=== PATIENT | female | born 1990 | race American Indian/Alaskan Native ===

== ENCOUNTER 2018-04-13 15:01 | Inpatient (IN) | payer OTHER ==
[2018-04-13] MEDS ORDERED: MINERAL OIL PO PRN (16:03)
[2018-04-13] MEDS ORDERED: BRETHINE SUB-Q PRN (16:03)
[2018-04-13] MEDS ORDERED: BRETHINE IVP PRN (16:03)
[2018-04-13] MEDS ORDERED: XYLOCAINE 2% INFILTRATI ONE (16:03)
[2018-04-13] MEDS ORDERED: ePHEDrine SULFATE IV PRN (16:03)
[2018-04-13] MEDS: LACTATED RINGERS 1,000 ML IV SCH (16:35)
[2018-04-13] MEDS ORDERED: PITOCin/NS 30 UNIT/500ML 30 UNITS/500 ML BAG IV SCH (17:00)
[2018-04-13] MEDS ORDERED: PITOCin/NS 20 UNIT/1000ML DRIP 20 UNITS/1,000 ML BAG IV SCH (17:00)
[2018-04-13] MEDS ORDERED: CYTOTEC VG PRN (17:01)
--- NOTE | 2018-04-13 17:33 | History and Physical Report ---
History of Present Illness Date of examination: 04/13/18 Date of admission: 04/13/18 15:01 Chief complaint: Induction of Labor History of present illness: Early entry to care, course complicated by nausea and vomiting in the 1st trimester, also treated for Chlamydia and Trichomonas. HSV 2 Positive as well. Co-managed with [facility] due to subclinicial hyperthyroidism and a son with Autism. 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 History: chlamydia, herpes, trichomonas Family/Genetic History: diabetes (MGF, Mother, Uncle) Social history: no significant social history, single - Obstetrical History Expected Date of Delivery: 04/12/18 Actual Gestation: 40 Week(s) 1 Day(s) : 6 Para: 4 Number of Living Children: 4 #1 Gender: Female year: 2,006 Birthweight: 3.997 kg Method of Delivery: Vaginal Gestational age at delivery: 41 Complications: none #2 Gender: Male year: 2,[birth year] Birthweight: 3.941 kg Method of Delivery: Vaginal Gestational age at delivery: 41 Complications: none #3 Infant Gender: Male year: 2,010 Birthweight: 3.912 kg Method of Delivery: Vaginal Gestational age at delivery: 41 Complications: none #4 Gender: Male year: 2,013 Birthweight: 3.799 kg Method of Delivery: Vaginal Gestational age at delivery: 41 Medications and Allergies Allergies Allergy/AdvReac Type Severity Reaction Status Date / Time No Known Allergies Allergy Unverified 04/13/18 15:51 Home Medications Medication Instructions Recorded Confirmed Last Taken Type Ferrous Sulfate [Iron] 1 tab PO BID 04/13/18 04/13/18 1 Day Ago History ~04/12/18 Valacyclovir HCl [Valtrex] 1 tab PO DAILY 04/13/18 04/13/18 1 Day Ago History ~04/12/18 Active Meds: Active Medications Ephedrine Sulfate (Ephedrine Sulfate) 10 mg IV Q2M PRN PRN Reason: Hypotension Lactated Ringer's (Lactated Ringers) 1,000 mls @ 125 mls/hr IV DIRECT SUNNY Last Admin: 04/13/18 16:35 Dose: 125 mls/hr Oxytocin/Sodium Chloride (Pitocin/Ns 20 Unit/1000ml Drip) 20 units in 1,000 mls @ 125 mls/hr IV DIRECT SUNNY Oxytocin/Sodium Chloride (Pitocin/Ns 30 Unit/500ml) 30 units in 500 mls @ 2 mls /hr IV TITR SUNNY; Protocol Oxytocin/Sodium Chloride (Pitocin/Ns 30 Unit/500ml) 30 units in 500 mls @ 1 mls /hr IV TITR SUNNY; Protocol Mineral Oil (Mineral Oil) 30 ml PO QHS PRN PRN Reason: Constipation Misoprostol (Cytotec) 25 mcg VG Q4H PRN PRN Reason: Labor Induction Terbutaline Sulfate (Brethine) 0.25 mg SUB-Q ONCE PRN PRN Reason: Hyperstimulation/Hypertonicity Terbutaline Sulfate (Brethine) 0.25 mg IVP ONCE PRN PRN Reason: Hyperstimulation/Hypertonicity Review of Systems All systems: negative - Vital Signs Vital signs: Vital Signs Temp Resp 99.0 F 18 04/13/18 15:45 04/13/18 15:45 Temp Pulse Resp BP Pulse Ox 99.0 F 95 H 18 103/71 04/13/18 15:45 04/13/18 17:18 04/13/18 15:45 04/13/18 17:18 - Physical Exam Breasts: Positive: normal Cardiovascular: Regular rate Lungs: Positive: Clear to auscultation, Normal air movement Abdomen: Positive: normal appearance, soft, normal bowel sounds Genitourinary (Female): Positive: normal external genitalia, normal perenium Vagina: Positive: normal moisture Uterus: Positive: enlarged Anus/Rectum: Positive: normal perianal skin - Obstetrical FHR: category 1 Uterine Contraction Monitor Mode: External Cervical Dilatation: 2.5 Cervical Effacement Percentage: 60 station: -3 Uterine Contraction Pattern: Irregular Uterine Tone Measurement Phase: Resting Uterine Contraction Intensity: Mild Results All other labs normal. Assessment and Plan A IUP @ 40 1/7 Weeks Category I Tracing Suspected LGA Polyhydramnios GBS Negative P: Admit to L&D per Routine Orders Cytotec Induction
[2018-04-13 17:51] LABS: Hematocrit 38.2 % (30.3-42.9); Hemoglobin 12.8 gm/dl (10.1-14.3); Mean Corpuscular HGB Conc 33 % (30-34); Mean Corpuscular Hemoglobin 34 pg (28-32); Mean Corpuscular Volume 103 fl (79-97); Platelet Count 207 K/mm3 (140-440); Red Blood Count 3.72 M/mm3 (3.65-5.03); Red Cell Distribution Width 13.7 % (13.2-15.2)
[2018-04-13] MEDS ORDERED: CERVIDIL VG ONE (17:52)
[2018-04-14] MEDS ORDERED: STADOL IV PRN (01:53)
[2018-04-14] MEDS ORDERED: SUBLIMAZE IV PRN (01:54)
[2018-04-14] MEDS: LACTATED RINGERS 1,000 ML IV SCH ×4 (02:03→17:52)
--- NOTE | 2018-04-14 10:17 | Progress Note ---
Assessment and Plan A: Term IUP 40w2d, IOL Category 1 tracing AROM 10:06 Copious amt clear fluid P: Routine labor orders Anticipate Subjective - Subjective Date of service: 04/14/18 Principal diagnosis: Term IUP, IOL Interval history: See H&P Patient reports: movement normal, contractions Objective - Vital Signs Vital Signs: Vital Signs - 12hr 04/13/18 04/13/18 04/13/18 22:17 22:21 22:24 Temperature Pulse Rate 95 H 93 H 97 H Respiratory Rate Blood Pressure 100/63 Blood Pressure [Right] O2 Sat by Pulse 94 94 94 Oximetry 04/13/18 04/13/18 04/13/18 22:26 22:31 22:35 Temperature Pulse Rate 94 H 93 H 97 H Respiratory Rate Blood Pressure Blood Pressure [Right] O2 Sat by Pulse 95 95 94 Oximetry 04/13/18 04/13/18 04/13/18 22:36 22:41 22:46 Temperature Pulse Rate 99 H 94 H 95 H Respiratory Rate Blood Pressure Blood Pressure [Right] O2 Sat by Pulse 95 95 95 Oximetry 04/13/18 04/13/18 04/13/18 22:51 22:56 23:01 Temperature Pulse Rate 96 H 99 H 99 H Respiratory Rate Blood Pressure Blood Pressure [Right] O2 Sat by Pulse 95 98 98 Oximetry 04/13/18 04/13/18 04/13/18 23:03 23:06 23:11 Temperature Pulse Rate 98 H 99 H 96 H Respiratory Rate Blood Pressure Blood Pressure [Right] O2 Sat by Pulse 94 96 97 Oximetry 04/13/18 04/13/18 04/13/18 23:13 23:16 23:17 Temperature Pulse Rate 100 H 100 H 92 H Respiratory Rate Blood Pressure 101/60 Blood Pressure [Right] O2 Sat by Pulse 94 95 Oximetry 04/13/18 04/13/18 04/13/18 23:21 23:26 23:31 Temperature Pulse Rate 92 H 86 93 H Respiratory Rate Blood Pressure Blood Pressure [Right] O2 Sat by Pulse 95 97 96 Oximetry 04/13/18 04/13/18 04/13/18 23:36 23:41 23:51 Temperature Pulse Rate 90 99 H 85 Respiratory Rate Blood Pressure Blood Pressure [Right] O2 Sat by Pulse 96 95 96 Oximetry 04/13/18 04/14/18 04/14/18 23:56 00:01 00:06 Temperature Pulse Rate 90 86 92 H Respiratory Rate Blood Pressure Blood Pressure [Right] O2 Sat by Pulse 96 96 97 Oximetry 04/14/18 04/14/18 04/14/18 00:09 00:11 00:15 Temperature Pulse Rate 87 84 82 Respiratory Rate Blood Pressure Blood Pressure [Right] O2 Sat by Pulse 94 94 94 Oximetry 04/14/18 04/14/18 04/14/18 00:16 00:17 00:21 Temperature Pulse Rate 84 82 88 Respiratory Rate Blood Pressure 109/60 Blood Pressure [Right] O2 Sat by Pulse 94 93 Oximetry 04/14/18 04/14/18 04/14/18 00:22 00:26 00:27 Temperature Pulse Rate 82 85 93 H Respiratory Rate Blood Pressure Blood Pressure [Right] O2 Sat by Pulse 94 93 94 Oximetry 04/14/18 04/14/18 04/14/18 00:31 00:35 00:36 Temperature Pulse Rate 88 98 H 84 Respiratory Rate Blood Pressure Blood Pressure [Right] O2 Sat by Pulse 92 92 94 Oximetry 04/14/18 04/14/18 04/14/18 00:40 00:41 00:46 Temperature Pulse Rate 95 H 93 H 97 H Respiratory Rate Blood Pressure Blood Pressure [Right] O2 Sat by Pulse 94 93 93 Oximetry 04/14/18 04/14/18 04/14/18 00:50 00:51 00:56 Temperature Pulse Rate 91 H 91 H 89 Respiratory Rate Blood Pressure Blood Pressure [Right] O2 Sat by Pulse 94 93 94 Oximetry 04/14/18 04/14/18 04/14/18 00:57 01:01 01:03 Temperature Pulse Rate 96 H 89 89 Respiratory Rate Blood Pressure Blood Pressure [Right] O2 Sat by Pulse 94 93 92 Oximetry 04/14/18 04/14/18 04/14/18 01:06 01:11 01:16 Temperature Pulse Rate 87 91 H 91 H Respiratory Rate Blood Pressure Blood Pressure [Right] O2 Sat by Pulse 94 94 92 Oximetry 04/14/18 04/14/18 04/14/18 01:18 01:21 01:24 Temperature Pulse Rate 92 H 93 H 89 Respiratory Rate Blood Pressure 104/54 Blood Pressure [Right] O2 Sat by Pulse 94 96 93 Oximetry 04/14/18 04/14/18 04/14/18 01:26 01:30 01:31 Temperature Pulse Rate 87 88 88 Respiratory Rate Blood Pressure Blood Pressure [Right] O2 Sat by Pulse 94 91 93 Oximetry 04/14/18 04/14/18 04/14/18 01:37 01:42 01:45 Temperature Pulse Rate 90 96 H 84 Respiratory Rate Blood Pressure Blood Pressure [Right] O2 Sat by Pulse 96 97 94 Oximetry 04/14/18 04/14/18 04/14/18 01:47 01:52 01:54 Temperature Pulse Rate 86 82 Respiratory Rate Blood Pressure Blood Pressure [Right] O2 Sat by Pulse 94 93 93 Oximetry 04/14/18 04/14/18 04/14/18 01:57 02:02 02:07 Temperature Pulse Rate 93 H 82 87 Respiratory Rate Blood Pressure Blood Pressure [Right] O2 Sat by Pulse 94 94 92 Oximetry 04/14/18 04/14/18 04/14/18 02:08 02:12 02:17 Temperature Pulse Rate 87 91 H 87 Respiratory 18 Rate Blood Pressure Blood Pressure [Right] O2 Sat by Pulse 94 94 94 Oximetry 04/14/18 04/14/18 04/14/18 02:18 02:22 02:23 Temperature Pulse Rate 95 H 89 89 Respiratory Rate Blood Pressure 112/6 Blood Pressure [Right] O2 Sat by Pulse 95 94 Oximetry 04/14/18 04/14/18 04/14/18 02:27 02:32 02:37 Temperature Pulse Rate 85 87 90 Respiratory Rate Blood Pressure Blood Pressure [Right] O2 Sat by Pulse 89 90 91 Oximetry 04/14/18 04/14/18 04/14/18 02:42 02:44 02:47 Temperature Pulse Rate 84 98 H 75 Respiratory 18 Rate Blood Pressure Blood Pressure [Right] O2 Sat by Pulse 91 94 90 Oximetry 04/14/18 04/14/18 04/14/18 02:52 02:57 03:02 Temperature Pulse Rate 84 83 84 Respiratory Rate Blood Pressure Blood Pressure [Right] O2 Sat by Pulse 90 90 91 Oximetry 04/14/18 04/14/18 04/14/18 03:07 03:12 03:17 Temperature Pulse Rate 82 84 78 Respiratory Rate Blood Pressure 104/58 Blood Pressure [Right] O2 Sat by Pulse 90 89 92 Oximetry 04/14/18 04/14/18 04/14/18 03:22 03:27 03:32 Temperature Pulse Rate 83 84 83 Respiratory Rate Blood Pressure Blood Pressure [Right] O2 Sat by Pulse 90 90 90 Oximetry 04/14/18 04/14/18 04/14/18 03:37 03:42 03:47 Temperature Pulse Rate 83 85 85 Respiratory Rate Blood Pressure Blood Pressure [Right] O2 Sat by Pulse 90 91 90 Oximetry 04/14/18 04/14/18 04/14/18 03:48 03:52 03:57 Temperature Pulse Rate 94 H 76 79 Respiratory Rate Blood Pressure Blood Pressure [Right] O2 Sat by Pulse 94 91 91 Oximetry 04/14/18 04/14/18 04/14/18 04:02 04:07 04:12 Temperature Pulse Rate 77 77 80 Respiratory Rate Blood Pressure Blood Pressure [Right] O2 Sat by Pulse 92 92 91 Oximetry 04/14/18 04/14/18 04/14/18 04:17 04:18 04:22 Temperature Pulse Rate 81 78 83 Respiratory Rate Blood Pressure 88/50 Blood Pressure [Right] O2 Sat by Pulse 91 91 Oximetry 04/14/18 04/14/18 04/14/18 04:27 04:32 04:37 Temperature Pulse Rate 81 83 85 Respiratory Rate Blood Pressure Blood Pressure [Right] O2 Sat by Pulse 91 90 91 Oximetry 04/14/18 04/14/18 04/14/18 04:42 04:47 04:55 Temperature Pulse Rate 81 94 H Respiratory Rate Blood Pressure Blood Pressure [Right] O2 Sat by Pulse 91 94 94 Oximetry 04/14/18 04/14/18 04/14/18 04:56 05:01 05:02 Temperature Pulse Rate 87 79 85 Respiratory Rate Blood Pressure Blood Pressure [Right] O2 Sat by Pulse 94 97 94 Oximetry 04/14/18 04/14/18 04/14/18 05:06 05:11 05:16 Temperature Pulse Rate 85 86 82 Respiratory Rate Blood Pressure Blood Pressure [Right] O2 Sat by Pulse 93 94 93 Oximetry 04/14/18 04/14/18 04/14/18 05:17 05:21 05:26 Temperature Pulse Rate 82 84 84 Respiratory Rate Blood Pressure 89/54 Blood Pressure [Right] O2 Sat by Pulse 92 91 Oximetry 04/14/18 04/14/18 04/14/18 05:31 05:36 05:41 Temperature Pulse Rate 85 85 84 Respiratory Rate Blood Pressure Blood Pressure [Right] O2 Sat by Pulse 91 91 92 Oximetry 04/14/18 04/14/18 04/14/18 05:46 05:51 05:56 Temperature Pulse Rate 85 90 85 Respiratory Rate Blood Pressure Blood Pressure [Right] O2 Sat by Pulse 91 91 92 Oximetry 04/14/18 04/14/18 04/14/18 06:00 06:01 06:06 Temperature Pulse Rate 95 H 94 H 82 Respiratory Rate Blood Pressure Blood Pressure [Right] O2 Sat by Pulse 93 93 92 Oximetry 04/14/18 04/14/18 04/14/18 06:11 06:16 06:17 Temperature Pulse Rate 84 82 81 Respiratory Rate Blood Pressure 88/54 Blood Pressure [Right] O2 Sat by Pulse 91 92 Oximetry 04/14/18 04/14/18 04/14/18 06:21 06:24 06:26 Temperature Pulse Rate 98 H 81 93 H Respiratory Rate Blood Pressure Blood Pressure [Right] O2 Sat by Pulse 93 94 94 Oximetry 04/14/18 04/14/18 04/14/18 06:30 06:31 06:36 Temperature Pulse Rate 87 89 100 H Respiratory Rate Blood Pressure Blood Pressure [Right] O2 Sat by Pulse 94 94 95 Oximetry 04/14/18 04/14/18 04/14/18 06:37 06:41 06:42 Temperature Pulse Rate 85 89 84 Respiratory Rate Blood Pressure Blood Pressure [Right] O2 Sat by Pulse 94 94 94 Oximetry 04/14/18 04/14/18 04/14/18 06:46 06:49 06:51 Temperature Pulse Rate 85 89 95 H Respiratory Rate Blood Pressure Blood Pressure [Right] O2 Sat by Pulse 93 94 94 Oximetry 04/14/18 04/14/18 04/14/18 06:55 06:56 07:01 Temperature Pulse Rate 89 94 H 85 Respiratory Rate Blood Pressure Blood Pressure [Right] O2 Sat by Pulse 94 95 93 Oximetry 04/14/18 04/14/18 04/14/18 07:02 07:06 07:09 Temperature Pulse Rate 82 81 84 Respiratory Rate Blood Pressure Blood Pressure [Right] O2 Sat by Pulse 94 94 94 Oximetry 04/14/18 04/14/18 04/14/18 07:11 07:15 07:16 Temperature Pulse Rate 82 86 82 Respiratory Rate Blood Pressure Blood Pressure [Right] O2 Sat by Pulse 94 94 94 Oximetry 04/14/18 04/14/18 04/14/18 07:19 07:20 07:21 Temperature Pulse Rate 90 80 82 Respiratory Rate Blood Pressure 111/57 Blood Pressure [Right] O2 Sat by Pulse 94 94 Oximetry 04/14/18 04/14/18 04/14/18 07:26 07:28 07:31 Temperature Pulse Rate 84 86 85 Respiratory Rate Blood Pressure Blood Pressure [Right] O2 Sat by Pulse 94 94 94 Oximetry 04/14/18 04/14/18 04/14/18 07:35 07:36 07:40 Temperature Pulse Rate 78 89 93 H Respiratory Rate Blood Pressure Blood Pressure [Right] O2 Sat by Pulse 94 94 94 Oximetry 04/14/18 04/14/18 04/14/18 07:41 07:45 07:46 Temperature Pulse Rate 85 88 88 Respiratory Rate Blood Pressure Blood Pressure [Right] O2 Sat by Pulse 96 94 94 Oximetry 04/14/18 04/14/18 04/14/18 07:51 07:55 07:56 Temperature Pulse Rate 85 91 H 88 Respiratory Rate Blood Pressure Blood Pressure [Right] O2 Sat by Pulse 95 94 93 Oximetry 04/14/18 04/14/18 04/14/18 07:58 08:01 08:03 Temperature 98.4 F Pulse Rate 93 H 101 H 83 Respiratory 16 Rate Blood Pressure Blood Pressure 119/71 [Right] O2 Sat by Pulse 95 94 93 Oximetry 04/14/18 04/14/18 04/14/18 08:05 08:06 08:09 Temperature Pulse Rate 90 89 89 Respiratory Rate Blood Pressure 119/71 Blood Pressure [Right] O2 Sat by Pulse 92 93 Oximetry 04/14/18 04/14/18 04/14/18 08:11 08:14 08:16 Temperature Pulse Rate 86 85 90 Respiratory Rate Blood Pressure Blood Pressure [Right] O2 Sat by Pulse 93 94 94 Oximetry 04/14/18 04/14/18 04/14/18 08:18 08:21 08:23 Temperature Pulse Rate 85 92 H 90 Respiratory Rate Blood Pressure 110/74 Blood Pressure [Right] O2 Sat by Pulse 93 94 Oximetry 04/14/18 04/14/18 04/14/18 08:26 08:29 08:31 Temperature Pulse Rate 88 102 H 96 H Respiratory Rate Blood Pressure Blood Pressure [Right] O2 Sat by Pulse 94 93 91 Oximetry 04/14/18 04/14/18 04/14/18 08:35 08:36 08:41 Temperature Pulse Rate 86 84 80 Respiratory Rate Blood Pressure Blood Pressure [Right] O2 Sat by Pulse 94 92 94 Oximetry 04/14/18 04/14/18 04/14/18 08:46 08:51 08:52 Temperature Pulse Rate 85 85 95 H Respiratory Rate Blood Pressure Blood Pressure [Right] O2 Sat by Pulse 93 94 94 Oximetry 04/14/18 04/14/18 04/14/18 08:56 09:01 09:06 Temperature Pulse Rate 93 H 93 H 97 H Respiratory Rate Blood Pressure Blood Pressure [Right] O2 Sat by Pulse 95 96 95 Oximetry 04/14/18 04/14/18 04/14/18 09:11 09:16 09:18 Temperature Pulse Rate 103 H 93 H 89 Respiratory Rate Blood Pressure 95/53 Blood Pressure [Right] O2 Sat by Pulse 93 94 Oximetry 04/14/18 04/14/18 04/14/18 09:21 09:26 09:28 Temperature Pulse Rate 84 86 84 Respiratory Rate Blood Pressure Blood Pressure [Right] O2 Sat by Pulse 93 93 94 Oximetry 04/14/18 04/14/18 04/14/18 09:31 09:33 09:36 Temperature Pulse Rate 78 85 88 Respiratory Rate Blood Pressure Blood Pressure [Right] O2 Sat by Pulse 94 94 94 Oximetry 04/14/18 04/14/18 04/14/18 09:39 09:41 09:45 Temperature Pulse Rate 83 82 86 Respiratory Rate Blood Pressure Blood Pressure [Right] O2 Sat by Pulse 93 95 94 Oximetry 04/14/18 04/14/18 09:46 09:51 Temperature Pulse Rate 91 H 76 Respiratory Rate Blood Pressure Blood Pressure [Right] O2 Sat by Pulse 94 94 Oximetry - Exam Breasts: normal Cardiovascular: Regular rate, Normal S1, Normal S2 Lungs: Clear to auscultation, Normal air movement Abdomen: Present: normal appearance, soft, normal bowel sounds, other (Gravid) Vulva: both: normal Uterus: Present: normal (Gravid) FHR: category 1 Uterine Contraction Monitor Mode: External Cervical Dilatation: 3 (AROM 10:06, copious amt clear fluid) Cervical Effacement Percentage: 70 station: -2 Uterine Contraction Pattern: Irregular Uterine Tone Measurement Phase: Resting Uterine Contraction Intensity: Mild Extremities: normal Deep Tendon Reflex Grade: Normal +2 - Labs Labs: Abnormal Labs 04/13/18 16:05 MCV 103 H MCH 34 H Laboratory Results - last 24 hr 04/13/18 04/13/18 16:05 16:05 WBC 8.2 RBC 3.72 Hgb 12.8 Hct 38.2 MCV 103 H MCH 34 H MCHC 33 RDW 13.7 Plt Count 207 Blood Type O POSITIVE Antibody Screen Negative
[2018-04-14] MEDS: PITOCin/NS 30 UNIT/500ML 30 UNITS/500 ML BAG IV SCH ×3 (11:22→16:29)
[2018-04-14] MEDS ORDERED: BICITRA PO ONE (17:10)
[2018-04-14] MEDS ORDERED: PEPCID IV ONE (17:10)
[2018-04-14] MEDS ORDERED: REGLAN IV ONE (17:10)
--- NOTE | 2018-04-14 17:20 | Progress Note ---
Assessment and Plan A: Term IUP 40w2d Polyhydramnios Category 1 tracing Meconium stained fluid Aniya Breech presentation (confirmed via US at bedside) Pitocin 12mu P: Dr. Nails notified via phone of Breech presentation @16:59(Will proceed to Primary section) Pitocin off Routine pre-op orders Subjective - Subjective Date of service: 04/14/18 Principal diagnosis: Term IUP, IOL Interval history: See H&P Patient reports: loss of fluid, movement normal, contractions Objective - Vital Signs Vital Signs: Vital Signs - 12hr 04/14/18 04/14/18 04/14/18 05:17 05:21 05:26 Temperature Pulse Rate 82 84 84 Respiratory Rate Blood Pressure 89/54 Blood Pressure [Right] O2 Sat by Pulse 92 91 Oximetry 04/14/18 04/14/18 04/14/18 05:31 05:36 05:41 Temperature Pulse Rate 85 85 84 Respiratory Rate Blood Pressure Blood Pressure [Right] O2 Sat by Pulse 91 91 92 Oximetry 04/14/18 04/14/18 04/14/18 05:46 05:51 05:56 Temperature Pulse Rate 85 90 85 Respiratory Rate Blood Pressure Blood Pressure [Right] O2 Sat by Pulse 91 91 92 Oximetry 04/14/18 04/14/18 04/14/18 06:00 06:01 06:06 Temperature Pulse Rate 95 H 94 H 82 Respiratory Rate Blood Pressure Blood Pressure [Right] O2 Sat by Pulse 93 93 92 Oximetry 04/14/18 04/14/18 04/14/18 06:11 06:16 06:17 Temperature Pulse Rate 84 82 81 Respiratory Rate Blood Pressure 88/54 Blood Pressure [Right] O2 Sat by Pulse 91 92 Oximetry 04/14/18 04/14/18 04/14/18 06:21 06:24 06:26 Temperature Pulse Rate 98 H 81 93 H Respiratory Rate Blood Pressure Blood Pressure [Right] O2 Sat by Pulse 93 94 94 Oximetry 04/14/18 04/14/18 04/14/18 06:30 06:31 06:36 Temperature Pulse Rate 87 89 100 H Respiratory Rate Blood Pressure Blood Pressure [Right] O2 Sat by Pulse 94 94 95 Oximetry 04/14/18 04/14/18 04/14/18 06:37 06:41 06:42 Temperature Pulse Rate 85 89 84 Respiratory Rate Blood Pressure Blood Pressure [Right] O2 Sat by Pulse 94 94 94 Oximetry 04/14/18 04/14/18 04/14/18 06:46 06:49 06:51 Temperature Pulse Rate 85 89 95 H Respiratory Rate Blood Pressure Blood Pressure [Right] O2 Sat by Pulse 93 94 94 Oximetry 04/14/18 04/14/18 04/14/18 06:55 06:56 07:01 Temperature Pulse Rate 89 94 H 85 Respiratory Rate Blood Pressure Blood Pressure [Right] O2 Sat by Pulse 94 95 93 Oximetry 04/14/18 04/14/18 04/14/18 07:02 07:06 07:09 Temperature Pulse Rate 82 81 84 Respiratory Rate Blood Pressure Blood Pressure [Right] O2 Sat by Pulse 94 94 94 Oximetry 04/14/18 04/14/18 04/14/18 07:11 07:15 07:16 Temperature Pulse Rate 82 86 82 Respiratory Rate Blood Pressure Blood Pressure [Right] O2 Sat by Pulse 94 94 94 Oximetry 04/14/18 04/14/18 04/14/18 07:19 07:20 07:21 Temperature Pulse Rate 90 80 82 Respiratory Rate Blood Pressure 111/57 Blood Pressure [Right] O2 Sat by Pulse 94 94 Oximetry 04/14/18 04/14/18 04/14/18 07:26 07:28 07:31 Temperature Pulse Rate 84 86 85 Respiratory Rate Blood Pressure Blood Pressure [Right] O2 Sat by Pulse 94 94 94 Oximetry 04/14/18 04/14/18 04/14/18 07:35 07:36 07:40 Temperature Pulse Rate 78 89 93 H Respiratory Rate Blood Pressure Blood Pressure [Right] O2 Sat by Pulse 94 94 94 Oximetry 04/14/18 04/14/18 04/14/18 07:41 07:45 07:46 Temperature Pulse Rate 85 88 88 Respiratory Rate Blood Pressure Blood Pressure [Right] O2 Sat by Pulse 96 94 94 Oximetry 04/14/18 04/14/18 04/14/18 07:51 07:55 07:56 Temperature Pulse Rate 85 91 H 88 Respiratory Rate Blood Pressure Blood Pressure [Right] O2 Sat by Pulse 95 94 93 Oximetry 04/14/18 04/14/18 04/14/18 07:58 08:01 08:03 Temperature 98.4 F Pulse Rate 93 H 101 H 83 Respiratory 16 Rate Blood Pressure Blood Pressure 119/71 [Right] O2 Sat by Pulse 95 94 93 Oximetry 04/14/18 04/14/18 04/14/18 08:05 08:06 08:09 Temperature Pulse Rate 90 89 89 Respiratory Rate Blood Pressure 119/71 Blood Pressure [Right] O2 Sat by Pulse 92 93 Oximetry 04/14/18 04/14/18 04/14/18 08:11 08:14 08:16 Temperature Pulse Rate 86 85 90 Respiratory Rate Blood Pressure Blood Pressure [Right] O2 Sat by Pulse 93 94 94 Oximetry 04/14/18 04/14/18 04/14/18 08:18 08:21 08:23 Temperature Pulse Rate 85 92 H 90 Respiratory Rate Blood Pressure 110/74 Blood Pressure [Right] O2 Sat by Pulse 93 94 Oximetry 04/14/18 04/14/18 04/14/18 08:26 08:29 08:31 Temperature Pulse Rate 88 102 H 96 H Respiratory Rate Blood Pressure Blood Pressure [Right] O2 Sat by Pulse 94 93 91 Oximetry 04/14/18 04/14/18 04/14/18 08:35 08:36 08:41 Temperature Pulse Rate 86 84 80 Respiratory Rate Blood Pressure Blood Pressure [Right] O2 Sat by Pulse 94 92 94 Oximetry 04/14/18 04/14/18 04/14/18 08:46 08:51 08:52 Temperature Pulse Rate 85 85 95 H Respiratory Rate Blood Pressure Blood Pressure [Right] O2 Sat by Pulse 93 94 94 Oximetry 04/14/18 04/14/18 04/14/18 08:56 09:01 09:06 Temperature Pulse Rate 93 H 93 H 97 H Respiratory Rate Blood Pressure Blood Pressure [Right] O2 Sat by Pulse 95 96 95 Oximetry 04/14/18 04/14/18 04/14/18 09:11 09:16 09:18 Temperature Pulse Rate 103 H 93 H 89 Respiratory Rate Blood Pressure 95/53 Blood Pressure [Right] O2 Sat by Pulse 93 94 Oximetry 04/14/18 04/14/18 04/14/18 09:21 09:26 09:28 Temperature Pulse Rate 84 86 84 Respiratory Rate Blood Pressure Blood Pressure [Right] O2 Sat by Pulse 93 93 94 Oximetry 04/14/18 04/14/18 04/14/18 09:31 09:33 09:36 Temperature Pulse Rate 78 85 88 Respiratory Rate Blood Pressure Blood Pressure [Right] O2 Sat by Pulse 94 94 94 Oximetry 04/14/18 04/14/18 04/14/18 09:39 09:41 09:45 Temperature Pulse Rate 83 82 86 Respiratory Rate Blood Pressure Blood Pressure [Right] O2 Sat by Pulse 93 95 94 Oximetry 04/14/18 04/14/18 09:46 09:51 Temperature Pulse Rate 91 H 76 Respiratory Rate Blood Pressure Blood Pressure [Right] O2 Sat by Pulse 94 94 Oximetry - Exam Breasts: normal Cardiovascular: Regular rate, Normal S1 Lungs: Clear to auscultation, Normal air movement Abdomen: Present: normal appearance, soft, normal bowel sounds Vulva: both: normal Uterus: Present: normal (gravid) FHR: category 1 Uterine Contraction Monitor Mode: External Cervical Dilatation: 3 (Light meconium fluid noted with exam, presenting part not in pelvis, Bedside US shows aniya breech presentation ) Cervical Effacement Percentage: 50 station: out of pelvis Uterine Contraction Frequency (min): 5 Uterine Contraction Pattern: Regular Uterine Tone Measurement Phase: Resting Uterine Contraction Intensity: Mild Extremities: normal Deep Tendon Reflex Grade: Normal +2 - Labs Labs: Abnormal Labs 04/13/18 16:05 MCV 103 H MCH 34 H Laboratory Results - last 24 hr 04/13/18 04/13/18 04/13/18 16:05 16:05 16:05 WBC 8.2 RBC 3.72 Hgb 12.8 Hct 38.2 MCV 103 H MCH 34 H MCHC 33 RDW 13.7 Plt Count 207 RPR Nonreactive Blood Type O POSITIVE Antibody Screen Negative
--- NOTE | 2018-04-14 17:31 | Anesthesia Consultation ---
Anesthesia Consult and Med Hx Date of service: 04/14/18 - Airway Anesthetic Teeth Evaluation: Good ROM Head & Neck: Adequate Mental/Hyoid Distance: Adequate Mallampati Class: Class II Intubation Access Assessment: Probably Good - Pre-Operative Health Status ASA Pre-Surgery Classification: ASA2 Proposed Anesthetic Plan: Epidural, Spinal - Pulmonary Hx Asthma: No COPD: No Hx Pneumonia: No - Cardiovascular System Hx Hypertension: No - Central Nervous System Hx Seizures: No Hx Psychiatric Problems: No - Endocrine Hx Renal Disease: No Hx End Stage Renal Disease: No Hx Hypothyroidism: No Hx Hyperthyroidism: No - Hematic Hx Anemia: No Hx Sickle Cell Disease: No - Other Systems Hx Alcohol Use: No
[2018-04-14] MEDS ORDERED: TORADOL IV PRN (17:32)
[2018-04-14] MEDS ORDERED: ZOFRAN IV PRN (17:32)
[2018-04-14] MEDS ORDERED: PHENERGAN PO PRN (17:32)
[2018-04-14] MEDS ORDERED: NARCAN 0.4 MG/1 ML IV PRN ×2 (17:32→19:43)
[2018-04-14] MEDS ORDERED: DILAUDID IV PRN (17:32)
[2018-04-14] MEDS ORDERED: PHENERGAN PR PRN (17:32)
[2018-04-14] MEDS ORDERED: BENADRYL IV PRN (17:32)
--- NOTE | 2018-04-14 17:32 | Anesthesia Day of Surgery ---
Anesthesia Day of Surgery - Day of Surgery Patient Examined: Yes Patient H&P Reviewed: Yes Patient is NPO: Yes
[2018-04-14] MEDS ORDERED: ANCEF/STERILE WATER 2 GM/20 ML 2 GM/20 ML SYRINGE IV ONE (17:48)
[2018-04-14] MEDS ORDERED: SODIUM CHLORIDE FLUSH SYRINGE 10 ML IV SCH ×2 (18:00→20:00)
[2018-04-14] MEDS ORDERED: PITOCin/NS 20 UNIT/1000ML DRIP 20 UNITS/1,000 ML BAG IV SCH ×2 (18:00→20:00)
[2018-04-14] MEDS ORDERED: WATER FOR IRRIG STERILE IR ONE (18:30)
[2018-04-14] MEDS ORDERED: NACL 0.9% IR ONE (18:30)
[2018-04-14] MEDS ORDERED: ANCEF IV ONE (18:40)
[2018-04-14] MEDS ORDERED: MORPHINE ONE (19:17)
[2018-04-14] MEDS ORDERED: ZOFRAN ONE (19:27)
[2018-04-14] MEDS ORDERED: NACL 0.9% 1000 ML 1,000 ML ONE (19:28)
[2018-04-14] MEDS ORDERED: NEO SYNEPHRINE/NS Syringe(OR USE) IV ONE (19:30)
--- NOTE | 2018-04-14 19:40 | Operative Report ---
Operative Report Operative Report: DATE: 04/14/2018 PREOPERATIVE DIAGNOSIS: 27-year-old at 40+2 weeks, breech presentation POSTOP DIAGNOSIS: As above NAME OF PROCEDURE: Primary low transverse section SURGEON: BOWEN ORDOÑEZ MD [employer]: [place] ANESTHESIA: Combined spinal epidural EBL: 1200 mL PATHOLOGY SPECIMEN: None URINE OUTPUT: 300 mL FINDINGS: Male in complete breech presentation, time of 1848, infant weight 8 lbs. 10 oz. or 3898 g, Apgars 8 and 9, uterus appeared Non- laboured, bulky and globular in a manner suspicious for adenomyosis, no lower segment identified, uterus also rotated on it's axis with the left adnexa more anterior, otherwise normal utubes and ovaries bilaterally DESCRIPTION OF PROCEDURE: After informed consent, patient was taken to the operating room where she was prepped and draped in a sterile fashion. Pfannestial incision was performed 2 cm above the pubic symphysis. This was then carried down to the underlying rectus fascia which was scored in the midline. The fascial incision was extended laterally with the use of Christianson scissors, anterior leaf was then grasped with [place]'s elevated dissected sharply and bluntly off the underlying rectus. In a similar fashion the inferior leaf was grasped elevated dissected sharply and bluntly off the underlying rectus. The rectus was in the midline and the peritoneal cavity was entered without difficulty. After good visualization of the bladder the peritoneal layer was extended up and down; bladder blade was placed in the patient's pelvic cavity, bladder flap could not be created due to the globular, non laboured appearance of uterus. A hysterotomy incision was then performed with clear amniotic fluid noted. in cephalic presentation was delivered without difficulty in the usual manner; cord was clamped cut and was handed over to waiting NICU staff. The placenta was then delivered intact, the uterus was then exteriorized cleared of all clots and debris. Her hysterotomy incision was then closed in a running locked fashion with 0 Vicryl on a CTX in 3 layers due to the bulky nature. The uterus was then returned to the patient's pelvic cavity; the peritoneal edges were grasped with hemostats and Marilyn's; irrigation was used to clear the gutters of all clots and debris. Tisseel hemostatic agent was applied copiously over the hysterotomy incision and interceed placed to help with hemostasis. The peritoneal layer was closed in a running fashion with 3-0 Vicryl; the rectus was reapproximated with a single [id number] stitch. The fascia was then closed in a running fashion with 0 Vicryl; the subcutaneous layer was reapproximated with a single [id number] stitch. The skin was then closed in a subcuticular manner with 4-0 Monocryl. She tolerated the procedure well lap and instrument counts were correct 2, she did receive 2 grams of Ancef prior to the procedure. She is transferred to PACU in stable condition.
[2018-04-14] MEDS ORDERED: ANUCORT-HC PR PRN (19:43)
[2018-04-14] MEDS ORDERED: LANSINOH TP PRN (19:43)
[2018-04-14] MEDS ORDERED: MYLICON PO PRN (19:43)
[2018-04-14] MEDS ORDERED: MILK OF MAGNESIA PO PRN (19:43)
[2018-04-14] MEDS ORDERED: TUCKS PAD TP PRN (19:43)
[2018-04-14] MEDS ORDERED: TYLENOL PO PRN (19:43)
[2018-04-14] MEDS ORDERED: SENOKOT PO PRN (19:43)
[2018-04-14] MEDS ORDERED: PERCOCET 5/325 PO PRN (19:43)
[2018-04-14] MEDS ORDERED: XYLOCAINE MPF 2% ONE ×2 (19:44)
[2018-04-14] MEDS ORDERED: D5LR 1,000 ML IV SCH (20:00)
[2018-04-14] MEDS ORDERED: MORPHINE IV PRN ×2 (22:18→22:19)
[2018-04-14] MEDS: METHERGINE IM SCH (23:36)
[2018-04-14] MEDS: TORADOL IV SCH (23:44)
[2018-04-15 00:55] LABS: Hematocrit 32.8 % (30.3-42.9)
[2018-04-15] MEDS: TORADOL IV SCH ×3 (05:41→17:46)
[2018-04-15] MEDS ORDERED: BOOSTRIX IM ONE (06:00)
[2018-04-15] MEDS: METHERGINE IM SCH ×2 (06:20→14:17)
[2018-04-15 06:47] LABS: Hematocrit 29.5 % (30.3-42.9); Hemoglobin 10.4 gm/dl (10.1-14.3)
[2018-04-15 07:28] LABS: Hematocrit 31.8 % (30.3-42.9)
--- NOTE | 2018-04-15 09:47 | Progress Note ---
Assessment and Plan - Patient Problems (1) S/P primary low transverse Current Visit: Yes Status: Acute Plan to address problem: POD 1 - stable Continue routine postop orders Encouraged ambulation Anticipate d/c in 24-48 hrs (2) Anemia in puerperium, baby delivered during current episode of care Current Visit: Yes Status: Acute Plan to address problem: Asymptomatic Continue iron therapy Subjective - Subjective Date of service: 04/15/18 Principal diagnosis: s/p Primary LTCS, POD #2 Patient reports: appetite normal, voiding normally, pain well controlled, ambulating normally [place]: doing well, bottle feeding Objective - Vital Signs Latest vital signs: Vital Signs Temp Pulse Resp BP BP Pulse Ox 04/15/18 07:45 98.7 F 79 117/71 96 04/15/18 04:20 98.2 F 74 20 101/59 04/15/18 00:00 98.4 F 76 20 110/70 04/14/18 21:10 98.6 F 81 20 115/67 04/14/18 20:45 94 H 16 113/56 100 04/14/18 20:44 97.9 F 04/14/18 20:41 86 12 89/63 97 04/14/18 20:31 83 13 97/70 100 04/14/18 20:30 85 9 L 97/70 100 04/14/18 20:15 75 15 116/53 99 04/14/18 20:00 83 12 114/54 100 04/14/18 19:55 88 12 111/62 99 04/14/18 19:50 81 11 L 109/60 99 04/14/18 19:45 97.7 F 77 9 L 111/56 93 04/14/18 19:44 68 14 95 04/14/18 09:51 76 94 Intake and Output 04/14/18 04/15/18 04/15/18 23:59 07:59 15:59 Intake Total 2756.5 480 Output Total 450 900 Balance 2306.5 -420 Intake: IV 2756.5 Lactated Ringers 1,000 ml 750 @ 2250 mls/hr IV PREOP SUNNY Rx#:[id number] PITOCin/NS 30 UNIT/500ML 6.5 30 units In 500 ml @ 2 mls/hr IV TITR SUNNY Rx#: [id number] Oral 480 Output: Urine 450 900 Indwelling Catheter 900 Other: Total, Intake Amount 240 Total, Output Amount 600 # Voids Void 1 Estimated Blood Loss 1,200 - Exam Abdomen: Present: normal appearance, soft Vulva: both: normal Uterus: Present: normal, firm, fundal height at umbilicus Extremities: Present: normal Incision: Present: normal, dry, dressed - Labs Labs: Abnormal lab results 04/15/18 Range/Units 06:21 Hct 29.5 L (30.3-42.9) %
[2018-04-15] MEDS: FEOSOL PO SCH (10:12)
[2018-04-15] MEDS: PRENATAL VITAMIN PO SCH (10:12)
[2018-04-15 13:38] LABS: Hematocrit 32.4 % (30.3-42.9); Hemoglobin 11.3 gm/dl (10.1-14.3)
[2018-04-15] MEDS ORDERED: M-M-R II VACCINE SUB-Q ONE (19:44)
[2018-04-16] MEDS: MOTRIN PO PRN ×2 (03:30→09:15)
[2018-04-16] MEDS: FEOSOL PO SCH (09:30)
[2018-04-16] MEDS: PRENATAL VITAMIN PO SCH (09:30)
--- NOTE | 2018-04-16 10:45 | Progress Note ---
Assessment and Plan A: POD #2 Stable P: Follow Routine PostOp Orders D/C Home today per patient request RTO in One Week Subjective - Subjective Date of service: 04/16/18 Principal diagnosis: s/p Primary LTCS, POD #2 Interval history: Early entry to care, course complicated by nausea and vomiting in the 1st trimester, also treated for Chlamydia and Trichomonas. HSV 2 Positive as well. Co-managed with [facility] due to subclinicial hyperthyroidism and a son with Autism. Patient reports: appetite normal, voiding normally, pain well controlled, flatus , ambulating normally [employer]: doing well, bottle feeding (and ) Objective - Vital Signs Latest vital signs: Vital Signs Temp Pulse Resp BP BP Pulse Ox 04/16/18 01:49 98.2 F 87 18 104/68 96 04/15/18 15:33 98.5 F 82 20 101/67 96 Intake and Output 04/15/18 04/16/18 04/16/18 22:59 06:59 14:59 Intake Total 440 Balance 440 Intake: Oral 440 Other: Total, Intake Amount 440 # Voids Void 3 # Bowel Movements 0 - Exam Breasts: Present: normal Cardiovascular: Present: Regular rate Lungs: Present: Clear to auscultation, Normal air movement Abdomen: Present: normal appearance, soft, normal bowel sounds Uterus: Present: normal, firm, fundal height below umbilicus Extremities: Present: normal Incision: Present: normal, dry, intact
--- NOTE | 2018-04-16 10:46 | Discharge Summary ---
Providers - Providers Date of Admission: 04/13/18 15:01 Date of discharge: 04/16/18 Attending physician: GRACIE BARRIOS MD Primary care physician: GRACIE BARRIOS MD Hospitalization Reason for admission: induction of labor Delivery: Procedure: primary low transverse Episiotomy: none Laceration: none Incision: normal, intact Other procedures: none complications: none Discharge diagnosis: IUP at term delivered baby: male Condition at discharge: Good Disposition: DC-01 TO HOME OR SELFCARE Plan - Discharge Medications Prescriptions: Ibuprofen [Motrin 600 MG tab] 600 mg PO Q8H PRN #30 tablet PRN Reason: Pain Multivitamin with Iron [Multivitamins with Iron] 1 each PO DAILY #30 tablet oxyCODONE /ACETAMINOPHEN [Percocet 5/325] 1 tab PO Q6HR PRN #30 tablet PRN Reason: Pain - Provider Discharge Summary Activity: routine, no sex for 6 weeks, no heavy lifting 4 weeks, no strenuous exercise Diet: routine Instructions: routine Additional instructions: [] Smoking cessation referral if applicable(refer to patient education folder for contact #) [] Refer to [facility] Booklet Call your doctor immediately for: * Fever > 100.5 * Heavy vaginal bleeding ( >1 pad per hour) * Severe persistent headache * Shortness of breath * Reddened, hot, painful area to leg or breast * Drainage or odor from incision. * Keep incision clean and dry at all times and follow doctor's instructions regarding bathing/showering - Follow up plan Follow up: GRACIE BARRIOS MD [Primary Care Provider] - 7 Days
[2018-04-16 15:16] VITALS: BP 110/76
== END 2018-04-16 15:00 | disposition home or self-care (01) | DRG 765 ==
LOC: LD 15:01 → OB 04-14 21:16
PROVIDERS: ADMIT Obstetrics & Gynecology; ATTEND Obstetrics & Gynecology
PROC: 10D00Z1 Extraction of Products of Conception, Low, Open Approach (ICD-10-PCS; principal; 2018-04-14)
DX: O32.1XX0 Maternal care for breech presentation, not applicable or unspecified (principal); O98.32 Other infections with a predominantly sexual mode of transmission complicating childbirth; O40.3XX0 Polyhydramnios, third trimester, not applicable or unspecified; O77.0 Labor and delivery complicated by meconium in amniotic fluid; O99.03 Anemia complicating the puerperium; D64.9 Anemia, unspecified; Z37.0 Single live birth; Z3A.41 41 weeks gestation of pregnancy; A60.00 Herpesviral infection of urogenital system, unspecified
CPT/HCPCS: 36415; 59200; 85014; 85018; 85027; 86592; 86850; 86900; 86901; 90471; 90715; 99211; C9250; G0463; J0595; J0690; J1885; J2210; J2270; J2370; J2405; J2590; J2765; J7030; J7120; J7121